=== PATIENT | female | born 2000 | race American Indian/Alaskan Native ===

== ENCOUNTER 2020-02-17 10:41 | Emergency (ER) | payer SELFPAY ==
[~2020-02-17] VITALS: Ht 172.7 cm; Wt 97.7 kg
[2020-02-17 10:49] VITALS: TEMP 97.8
[2020-02-17] MEDS ORDERED: FLEXERIL 1010 MG/TAB PO (11:35)
[2020-02-17 11:46] VITALS: BP 136/77; PULSE 77
== END 2020-02-17 11:55 | disposition home or self-care (01) ==
LOC: COL.ER 10:41
DX: S06.0X9A Concussion with loss of consciousness of unspecified duration, initial encounter (principal); S16.1XXA Strain of muscle, fascia and tendon at neck level, initial encounter; V89.2XXA Person injured in unspecified motor-vehicle accident, traffic, initial encounter
CPT/HCPCS: J1885